=== PATIENT | female | born 1965 ===

== ENCOUNTER → 2016-04-06 | Outpatient (CLI) | payer BC ==
[~2016-04-06] MED LIST: LOSA1TAB PO; ZOLP10TA PO
== END | disposition home or self-care (01) ==
LOC: C.RDSM 13:56
PROVIDERS: ATTEND Physical Medicine & Rehabilitation Sports Medicine
DX: M25.562 Pain in left knee (principal)

== ENCOUNTER → 2016-05-12 | Day surgery (SDC) | payer BC ==
[2016-04-23 12:05] VITALS: Ht 162.6 cm; Wt 79.5 kg
[~2016-05-12] VITALS: Ht 162.6 cm; Wt 79.5 kg
[~2016-05-12] MED LIST changes: +ATROPINE SULFATE 0.1 MG/ML 5ML SYR IV PRN; +BUPIVACAINE/EPINEPHRINE 0.5% MPF 1:200,000 30 ML VIAL ONE; +CEFAZOLIN 2000 MG/60 ML D5W IV SCH; +CHECK SCOPOLAMINE PATCH PLACEMENT SCH; +DEXAMETHASONE SOD INJ 4 MG/ML VIAL ONE; +EpHEDrine SULFATE INJ 50 MG/ML AMP IV PRN; +FENTANYL CITRATE INJ 50 MCG/1 ML 2 ML VIAL ONE; +HYDROmorphone INJ 1 MG/ML SYR IV PRN; +LACTATED RINGER'S 1000ML 1,000 ML IV SCH; +LIDOCAINE HCL 2% 2 ML VIAL (20MG/ML) ONE; +MIDAZOLAM HCL 1 MG/ML 2ML VIAL ONE; +MoRPHine SULFATE PF 1 MG/ML 10 ML AMP/VIAL ONE; +ONDANSETRON INJ 2 MG/ML 2 ML VIAL IV PRN; +ONDANSETRON INJ 2 MG/ML 2 ML VIAL ONE; +PROMETHAZINE HCL INJ 12.5 MG in SODIUM CHLORIDE 0.9% 50ML 50 ML IV PRN; +PROPOFOL IV EMULSION 10 MG/ML 20 ML VIAL IV ONE; +SCOPOLAMINE 1.5 MG TDSY TD ONE; +SCOPOLAMINE 1.5 MG TDSY TD SCH; +SODIUM CHLORIDE 0.9% 1000ML 1,000 ML IV SCH
--- NOTE | 2016-05-12 06:41 | History & Physical Bridge Note ---
H&P Re-Evaluation Bridge Note: I have examined the patient, reviewed the History & Physical and in the interval since the performance of the History & Physical I have noted the following changes of clinical significance: No changes noted
--- NOTE | 2016-05-12 06:44 | Discharge Instructions ---
Discharge Instructions Date of Service May 12, 2016. Visit Reason for Visit: Left Knee Medial Meniscus Tear Discharge Discharge Diagnosis / Problem: same/djd Discharge Goals Goal(s): Decrease discomfort, Improve function Medications Stopped Medications Name(s): na Restart Stopped Medication(s): use scripts as directed start pradaxa morning POD#1 Activity Recommendations Activity Limitations: as noted below Lifting Limitations: until after follow-up appointment Exercise/Sports Limitations: until after follow-up appointment May Resume Sexual Activity: when tolerated Shower/Bathe: keep incision dry Driving or Machine Use: resume 1 day after discharge Weightbearing Status: Left weightbearing (as tolerated) Anesthesia . Post Anesthesia Instructions: If you have had General Anesthesia or IV Sedation: * Do not drive today. * Resume driving when surgeon permits. * Do not make important decisions or sign legal documents today. * Call surgeon for: 1. Temperature elevations greater than 101 degrees F. 2. Uncontrollable pain. 3. Excessive bleeding. 4. Persistent nausea and vomiting. 5. Medication intolerance (nausea, vomiting or rash). * For nausea and vomiting use only clear liquids such as: tea, soda, bouillon until nausea subsides, then gradually increase diet as tolerated. * If you have any concerns or questions, call your surgeon's office. If physician is unavailable and it is an emergency, call 911 or go to the nearest emergency room. . Instructions / Follow-Up Instructions / Follow-Up The following are instructions to follow after your Arthroscopic Knee Surgery. ACTIVITY RECOMMENDATIONS: * Minimize activity until your first visit after surgery. * No excessive walking, jogging, sports or laboring. * Return to activity is individualized. Most patients are able to return to every day activities within one month. * Return to sports or intensive labor usually occurs at 2-3 months. * Driving is not permitted until at least your first postoperative visit at a minimum. Please ask your doctor when it is safe to resume driving. If you have an automatic vehicle and your left leg has been operated on, then you may begin driving as soon as you are comfortable and can drive safely. SCHOOL/WORK RECOMMENDATIONS: * You may return to sedentary work or school when you are feeling more comfortable. This is usually 3-7 days after surgery. * Expect increased discomfort with increased activity. Continue to elevate and ice the leg as much as possible. MEDICATIONS: * You will have a prescription for pain medication and an anti-inflammatory medication after surgery. * Use the pain medication for severe pain and the anti-inflammatory for less severe pain. Once the pain medication has run out, try to use the anti-inflammatory medication. If this is not effective, contact the office for assistance. * The pain medication may cause nausea, constipation and drowsiness. You should see how they affect you before driving or similar activity. * The anti-inflammatory medication may cause stomach upset and bleeding. If this occurs let your doctor know immediately . * Take a stool softener like Colace or a laxative like Senokot to prevent constipation. DIET: * Resume previous diet. SPECIAL CARE: ICE: You have the option of an ice cooler, gel packs or ice bags. * If you have an ice cooler, refer to the instructions for that device. The ice cooler may be used continuously. * If you do not have an ice cooler, you will need to use ice bags or gel packs. Do not apply ice directly to the skin. Use a thin dressing or gloria shirt between the skin and ice bag. Apply ice for 20-30 minutes and repeat every 2-4 hours. This is especially important for the first 7-10 days after surgery. Once the pain improves, use ice as needed. ELEVATION: * Keep your leg elevated at or above the level of your heart as much as possible. * Expect some increased discomfort and swelling if you are standing for any length of time. * When lying down, avoid placing anything under your knee. Rather, prop your leg up by placing several pillows under your heel or calf. DRESSING: * Your dressing will be changed at your first therapy appointment approximately 4-5 days after surgery. Band-aids, tape strips or gauze may be applied. You may then change your dressing daily. * Reapply dressing followed by the Waldo wrap or Tubi-service center representative stockinet and EBIce cooling pad (if chosen). * Always wash your hands prior to touching the incision area. * Once the stitches are removed, you may leave the wound open to air or cover with an Waldo wrap or Tubi-service center representative stockinet. * If you have been given a white elastic stocking (TEO hose), wear as much as possible for the first 1-3 weeks depending on swelling. * Expect some bloody drainage for the first few days after surgery. * Leave the tape strips, if present, in place for 5-7 days. * Band-aids and gauze may be changed daily. CRUTCHES: * You will need to use crutches after surgery. * You may gradually progress to full weight bearing as tolerated and wean off the crutches unless otherwise advised. * Your therapist can provide assistance weaning off crutches. * Patients who have a microfracture done may need to be toe-touch weight- bearing for 4-6 weeks. BATHING: * You may shower or sponge-bathe immediately after surgery. * The dressing will need to be covered with a plastic bag or plastic wrap until the dressing is changed on the fourth or fifth day after surgery. * Once the dressing has been changed on the fourth or fifth day after surgery, you may shower and get the incision wet. * Wash with regular soap and water. * Do not bathe (submerge the incision), soak, swim or use a hot tub until the incision is completely healed over with normal skin and the doctor has given the OK to proceed. * There is no need to apply any ointments, powders or salves to your incision. * Do not apply alcohol or hydrogen peroxide directly to the incision. * Diluted peroxide (50:50 mixture with sterile saline) may be used to clean dried blood from around the incision area. BRACE: * Bracing is generally not needed after routine Arthroscopic Knee surgery. THERAPY: * You will begin therapy four or five days after surgery. * Organized therapy with the therapist is important for the first 4-6 weeks after surgery. During that time you will attend therapy 1-3 times per week. * You will also need to do daily exercises for range of motion and strength as instructed. PROBLEMS/QUESTIONS: * If you have any problems such as severe pain, numbness, tingling or high fevers or if you have any questions, please contact the office at [phone]. * It is not uncommon to have some numbness and tingling after the surgery especially if you have had a nerve block done. This should gradually improve over the first 1- 2 days. If this persists longer or worsens please contact the office. FOLLOW UP VISIT: * If not already scheduled, please call the office at to schedule a follow-up appointment for 10 days, 6 weeks and 3 months after surgery. Diet Recommendations Recommended Home Diet: resume previous diet Procedures Procedures Performed: see op note Pending Studies Studies pending at discharge: no Medical Emergencies . Who to Call and When: Medical Emergencies: If at any time you feel your situation is an emergency, please call 911 immediately. . Non-Emergent Contact Non-Emergency issues call your: Specialist Call Non-Emergent contact if: temperature is above 101.5 . . "Provider Documentation" section prepared by Marcelo Hall.
--- NOTE | 2016-05-12 08:25 | [facility] Post Operative Brief Note ---
Immediate Operative Summary Operative Date May 12, 2016. Pre-Operative Diagnosis Left Knee Medial Meniscus Tear Post-Operative Diagnosis DJD/mm tear Procedure(s) Performed Left Knee Arthroscopy, Chondroplasty of Patellar Femoral Joint and Medial Femoral Condyle, Partial Medial Meniscectomy Surgeon Dr. Hazel Hall Keno Clerk Surgeon(s) Heike Venegas Estimated Blood Loss Trace Findings see op note Fluids (cc crystalloids) 1000cc Specimens None Drains none Anesthesia LMA/IA block Complication(s) None Disposition Recovery Room / PACU
[2016-05-12] MEDS: FENTANYL CITRATE INJ 50 MCG/1 ML 2 ML VIAL IV PRN ×2 (08:42→08:50)
--- NOTE | 2016-05-12 08:43 | OPERATIVE REPORT ---
PREOPERATIVE DIAGNOSIS: Left knee medial meniscal tear. POSTOPERATIVE DIAGNOSIS: Left knee same with degenerative joint disease of the medial compartment and patellofemoral compartment. PROCEDURE: Left knee arthroscopy, chondroplasty of the patellofemoral joint and medial femoral condyle, with partial medial meniscectomy. SURGEON: Dr. Hall. COSTUME CUTTER: Ramo Venegas PA-C. HISTORY OF PRESENT ILLNESS: This 51-year-old white female presented to the office with complaints of left knee pain. She had tried conservative care measures without success. She elected to proceed with surgical intervention after being educated about potential risks and outcomes. Preoperative x-ray and MRI were obtained. OPERATION: The patient was taken to the operating room where she was given general anesthetic. She was prepped and draped in the usual sterile fashion. Please see Dr. Hall's operative report for specifics of the procedure. I was present for the entire case from initial patient positioning through final wound closure. Assistance was provided in patient positioning, arthroscopy, and final wound closure. The patient was taken to the recovery room in satisfactory condition.
--- NOTE | 2016-05-12 08:54 | OPERATIVE REPORT ---
DATE OF OPERATION: 05/12/2016 SURGEON: Dr. Hall. TUBE SPLICER: Ramo Venegas PA-C. SECOND TUBE SPLICER: Demond Bradford. No resident or fellow available. PREOPERATIVE DIAGNOSIS: Large medial meniscus tear with early degenerative disease of the knee. POSTOPERATIVE DIAGNOSIS: Same with significant articular disease of the patellofemoral joint and the medial femoral condyle. OPERATION PERFORMED: 1. Exam under anesthesia. 2. Diagnostic arthroscopy. 3. Arthroscopic extensive medial meniscectomy. 4. Arthroscopic chondroplasty medial femoral condyle. 5. Arthroscopic extensive chondroplasty patellofemoral joint, both elements. PERIOPERATIVE SITUATION: Medically cleared female with intractable locking and catching of her knee, has significant medial joint line tenderness, has physical exam, x-ray and MRI scan consistent with extensive medial meniscus tear with large flap and significant articular disease of the patellofemoral joint. At this point in time, she wants to proceed with surgical treatment, although no guarantees could be given. OPERATION: The patient properly identified, site verified, consent verified, 2 grams of Ancef confirmed as being given. The knee was examined revealing no ligamentous instability, it was the left lower extremity. She was then sterilely injected with 20 mL of 0.5% Marcaine with epinephrine and 5 mg of Duramorph for postoperative pain control. The knee was then prepped and draped in the usual routine fashion. No tourniquet was applied or utilized. The inferomedial and inferolateral portals were marked and injected with 3.5 mL of 0.5% Marcaine with epinephrine. Anterolateral portal was then made, and using scope, the anteromedial portal localized. Extensive synovial disease medially was identified, this was all resected as well as anteriorly. There was extensive patellofemoral joint articular flapping with large flaps that were very unstable. These were all debrided to a stable base. There was grade 3 and 4 disease throughout 50% or more of the patellofemoral joint. The lateral compartment was relatively healthy, the lateral meniscus was relatively normal. The medial compartment had an articular surface lesion of the weightbearing surface of the medial femoral condyle as well as anteriorly where the patellofemoral joint started, this was all debrided to a stable base. It was elected not to do any micro fracture based on the bipolar disease of the patellofemoral joint and the medial femoral condyle. The medial femoral condyle lesion was about 1.5 x 1.5 cm. The medial meniscus had a very extensive horizontal cleavage tear with a large posterior flap which was trimmed to a stable balanced contoured rim with hand and power instrumentation. Small parameniscal cyst was evacuated and trephinated with a needle. The procedure was then terminated after all loose pieces were removed. Thorough irrigation of the joint was carried out. The fluid and instrumentation were then evacuated and the portals closed with 3-0 plain per request of the patient, she is definitely afraid of having her sutures removed. She also because of that wanted Pradaxa instead of Lovenox for postop DVT control, that we will start tomorrow. She will be on that for a week and then aspirin after that. Appropriate dressing applied and the patient transferred to recovery room in satisfactory condition, having tolerated the procedure well. Estimated blood loss was trace. Crystalloid was about a liter. Overall prognosis guarded based on the grade 4 disease of the patellofemoral joint and grade 3 to early 4 disease of the medial femoral condyle. I attest to the content of the Intraoperative Record and any orders documented therein. Any exceptio ns are noted below.
[2016-05-12 09:20] VITALS: TEMP 36.5
--- NOTE | 2016-05-12 09:43 | Anesthesia Progress Nt - [facility] ---
Anesthesia Post Op Note Date & Time May 12, 2016 at 09:43 Vital Signs Pain Intensity: 3 Vital Signs Past 12 Hours Date Time Temp Pulse Resp B/P Pulse Ox O2 Delivery O2 Flow Rate FiO2 05/12/16 09:20 36.5 62 20 124/76 96 Room Air 05/12/16 09:13 70 12 95 05/12/16 09:13 69 12 05/12/16 09:12 36.6 66 17 131/85 96 Room Air 05/12/16 09:10 131/85 05/12/16 09:08 81 20 05/12/16 09:08 82 20 96 05/12/16 09:05 138/91 05/12/16 09:04 138/90 05/12/16 09:03 65 17 100 05/12/16 09:03 65 17 05/12/16 09:01 138/90 05/12/16 08:58 69 15 05/12/16 08:58 69 15 148/101 93 05/12/16 08:55 148/101 05/12/16 08:53 67 17 100 05/12/16 08:53 67 17 05/12/16 08:50 144/91 05/12/16 08:48 64 20 05/12/16 08:48 64 20 99 05/12/16 08:45 125/86 05/12/16 08:43 71 20 05/12/16 08:43 72 20 98 05/12/16 08:41 144/99 05/12/16 08:38 72 15 99 05/12/16 08:38 77 15 05/12/16 08:35 130/100 05/12/16 08:33 36.9 75 16 134/92 99 Nasal Cannula 3 05/12/16 08:33 18 05/12/16 08:33 74 18 134/92 05/12/16 06:38 36.9 67 20 125/77 96 Room Air Notes Mental Status: alert / awake / arousable, participated in evaluation Pt Amnestic to Procedure: Yes Nausea / Vomiting: adequately controlled Pain: adequately controlled Airway Patency, RR, SpO2: stable & adequate BP & HR: stable & adequate Hydration State: stable & adequate Anesthetic Complications: no major complications apparent
[2016-05-12 09:53] VITALS: BP 123/83; PULSE 62; O2SAT 97
--- NOTE | 2016-05-12 18:09 | Medical Student: [facility] ---
Immediate Operative Summary Operative Date May 12, 2016. Pre-Operative Diagnosis Left knee medial meniscus tear Post-Operative Diagnosis Left knee medial meniscus tear and osteoarthritis Procedure(s) Performed Left knee arthroscopy; chondroplasty of medial femoral condyle and patellofemoral joint; partial medial menisectomy Surgeon Dr. Hall Pie Dough Roller Surgeon(s) Ramo Venegas PA-C Estimated Blood Loss Trace Findings Osteoarthritis of left knee; medial meniscus tear of left knee Fluids (cc crystalloids) 1000 cc Specimens None Anesthesia LMA Complication(s) None Disposition Recovery Room / PACU
--- NOTE | 2016-05-13 08:15 | EDITING REQUIRED CODING QUERY ---
CQMENISCUS TEAR To promote full compliance with coding requirements relating to patient care physician participation is requested in all cases of tire mold engraver uncertainty. Please assist us with the question(s) below: Please specify the type of Meniscus Tear by placing an "X" within the parenthesis (). If other please document type. () Current Injury DOS 05/12/16 WAS THIS INJURY OR DEGENERATION? THANK YOU () Old Injury () Other: (Please Specify) Thank you Loly Merchant
== END | disposition home or self-care (01) ==
LOC: X.SURG 06:23
PROVIDERS: ATTEND Physical Medicine & Rehabilitation Sports Medicine
DX: S83.242A Other tear of medial meniscus, current injury, left knee, initial encounter (principal); M17.12 Unilateral primary osteoarthritis, left knee; X58.XXXA Exposure to other specified factors, initial encounter

== ENCOUNTER → 2016-12-07 | Outpatient (CLI) | payer BC ==
[~2016-12-07] MED LIST changes: -ATROPINE SULFATE 0.1 MG/ML 5ML SYR IV PRN; -BUPIVACAINE/EPINEPHRINE 0.5% MPF 1:200,000 30 ML VIAL ONE; -CEFAZOLIN 2000 MG/60 ML D5W IV SCH; -CHECK SCOPOLAMINE PATCH PLACEMENT SCH; -DEXAMETHASONE SOD INJ 4 MG/ML VIAL ONE; -EpHEDrine SULFATE INJ 50 MG/ML AMP IV PRN; -FENTANYL CITRATE INJ 50 MCG/1 ML 2 ML VIAL ONE; -HYDROmorphone INJ 1 MG/ML SYR IV PRN; -LACTATED RINGER'S 1000ML 1,000 ML IV SCH; -LIDOCAINE HCL 2% 2 ML VIAL (20MG/ML) ONE; -MIDAZOLAM HCL 1 MG/ML 2ML VIAL ONE; -MoRPHine SULFATE PF 1 MG/ML 10 ML AMP/VIAL ONE; -ONDANSETRON INJ 2 MG/ML 2 ML VIAL IV PRN; -ONDANSETRON INJ 2 MG/ML 2 ML VIAL ONE; -PROMETHAZINE HCL INJ 12.5 MG in SODIUM CHLORIDE 0.9% 50ML 50 ML IV PRN; -PROPOFOL IV EMULSION 10 MG/ML 20 ML VIAL IV ONE; -SCOPOLAMINE 1.5 MG TDSY TD ONE; -SCOPOLAMINE 1.5 MG TDSY TD SCH; -SODIUM CHLORIDE 0.9% 1000ML 1,000 ML IV SCH
== END | disposition home or self-care (01) ==
LOC: C.RDSM 13:30
PROVIDERS: ATTEND Physical Medicine & Rehabilitation Sports Medicine
DX: M25.562 Pain in left knee (principal); S83.232D Complex tear of medial meniscus, current injury, left knee, subsequent encounter; X58.XXXD Exposure to other specified factors, subsequent encounter

== ENCOUNTER → 2017-05-31 | Outpatient (CLI) | payer BC | END | disposition home or self-care (01) | LOC: C.RDSM 11:48 | PROVIDERS: ATTEND Physical Medicine & Rehabilitation Sports Medicine | DX: M17.12 Unilateral primary osteoarthritis, left knee (principal) ==